=== PATIENT | female | born 1940 | race Caucasian/White ===

== ENCOUNTER → 2017-01-01 | Day surgery (SDC) | payer OTHER ==
[~2017-01-01] MED LIST: BALANCED SALT SOLN OPHT IRRIG 15 ML BTL ONE; DEXAMETHASONE SOD PHOS 4 MG/ML VIAL ONE; EPINEPHrine HCL (1:1000) 1 MG/ML VIAL ONE; LACTATED RINGER'S 1000 ML INJ 1,000 ML ONE; MOXIFLOXACIN 0.5% OPHT SOLN 3 ML BTL ONE; ONDANSETRON HCL 4 MG/2 ML VIAL IV PUSH ONE; PHENYLEPHRINE HCL 10% OPTH SOLN 5 ML BTL ONE; PROPOFOL 200 MG/20 ML AMP IV ONE; SODIUM CHLORIDE 0.9% INJ 10 ML ONE; TETRACAINE 0.5% OPTH SOLN 15 ML BTL ONE; TOBRAMYCIN/DEXAMETHASONE OPTH OINT 3.5 GM TUBE ONE; ceFAZolin INJ 1,000 MG VIAL ONE; prednisoLONE ACETATE 1% OPHT SUSP 5 ML BTL ONE
== END | disposition home or self-care (01) ==
LOC: ESDC 06:11
PROVIDERS: ATTEND Ophthalmology
DX: H43.12 Vitreous hemorrhage, left eye (principal); E11.9 Type 2 diabetes mellitus without complications; Z79.4 Long term (current) use of insulin
CPT/HCPCS: 00145; 67039; 82948; J0171; J0690; J1100; J2405; J3010; J7120

== ENCOUNTER → 2017-05-21 | Day surgery (SDC) | payer OTHER ==
[~2017-05-21] MED LIST changes: -BALANCED SALT SOLN OPHT IRRIG 15 ML BTL ONE; -TETRACAINE 0.5% OPTH SOLN 15 ML BTL ONE; +TETRACAINE 0.5% OPTH SOLN 4 ML BTL ONE; +TRIAMCINOLONE ACETONIDE 40 MG/ML VIAL ONE
--- NOTE | 2017-05-28 06:17 | TN ---
cc: RADAHMES CHAIREZ MD DATE OF SURGERY 05/21/2017 DATE OF 1940. PREOPERATIVE DIAGNOSIS Vitreous hemorrhage, proliferative diabetic retinopathy, left eye. POSTOPERATIVE DIAGNOSIS Vitreous hemorrhage, proliferative diabetic retinopathy, left eye. PROCEDURE Pars plana vitrectomy, removal of vitreous hemorrhage, endolaser, PRP, left eye. ANESTHESIA Dr. Bartlett general. BLOOD LOSS Less than 1 cc. COMPLICATIONS None. INDICATION FOR PROCEDURE This is a delightful patient with a long history of diabetes along with diabetic retinopathy. The patient has had a recurrent vitreous hemorrhage of her left eye due to presumably proliferative diabetic retinopathy which has not cleared. The patient has elected for surgical correction. She understood the risks, benefits and alternatives. PROCEDURE NOTE After informed consent was obtained, the patient was brought to the operating room and general anesthesia was established. The left was prepped and draped in sterile fashion with Betadine in the conjunctival fornix. A three-port pars plana vitrectomy was established with self-retaining infusion cannula. Some remaining vitreous and vitreous hemorrhage was evacuated. Vitreous traction was relieved when seen. Scleral depression examination revealed no retinal holes, tears or detachments. Endolaser was applied in PRP fashion. Intravitreal Kenalog was instilled. Trocars were removed and sclerotomies closed. Subconjunctival injection of Ancef and dexamethasone were given. The eye was patched with Tobramycin ointment. The patient was brought to the recovery room in stable condition. She will continue followup with [facility] for her postoperative care. Radhames Chairez MD KW/SSB /7:53 PM /6:03 AM
== END | disposition home or self-care (01) ==
LOC: ESDC 06:07
PROVIDERS: ATTEND Ophthalmology
DX: H43.12 Vitreous hemorrhage, left eye (principal); E11.3592 Type 2 diabetes mellitus with proliferative diabetic retinopathy without macular edema, left eye
CPT/HCPCS: 00145; 67040; 82948; J0171; J0690; J1100; J2405; J3010; J3301; J7120